=== PATIENT | female | born 1970 | race Hispanic/Latino ===

== ENCOUNTER 2022-02-17 19:14 | Emergency (ER) | payer OTHER, SELFPAY ==
[2022-02-17 19:45] LABS: Bilirubin Neg (Negative); Blood, Urine 250 (Negative); Clarity Slightly Cloudy (Clear); Glucose, Urine (Dipstick) Normal (Negative); Ketone, Urine Negative (Negative); Leukocyte 100 (Negative); Nitrite Negative (Negative); Protein, Urine (Dipstick) 30 mg/dl (Neg-Trace); Specific Gravity, Urine 1.005 (1.002-1.036); Urobilinogen Normal mg/dL (Less than 2)
[2022-02-17 19:58] LABS: Bacteria/HPF None Seen HPF (None Seen); RBC/HPF 21-50 HPF (0-3); Squamous Epithelial 0-3 HPF (0-3); WBC/HPF Greater Than 50 HPF (0-3)
== END 2022-02-17 20:12 | disposition home or self-care (01) ==
LOC: CSHERS 19:14
DX: N30.90 Cystitis, unspecified without hematuria (principal)
CPT/HCPCS: 81003; 81015; 87086; 99284

== ENCOUNTER 2024-05-28 11:28 | Outpatient (CLI) | payer OTHER ==
[2024-05-28 12:59] LABS: Hematocrit 40.6 % (34.9-44.5)
== END 2024-05-28 11:29 | disposition home or self-care (01) ==
LOC: CSHLAB 11:28
PROVIDERS: ATTEND Specialist
DX: Z01.818 Encounter for other preprocedural examination (principal); J34.2 Deviated nasal septum; J34.3 Hypertrophy of nasal turbinates; J35.1 Hypertrophy of tonsils
CPT/HCPCS: 85014; 93005; 93010

== ENCOUNTER 2024-06-04 08:04 | Day surgery (SDC) | payer OTHER ==
[2024-06-04] MEDS ORDERED: AFRIN NASAL MIST 15 ML BOT ONE ×2 (10:16→11:26)
[2024-06-04] MEDS ORDERED: PROPOFOL 20 ML ONE (11:25)
[2024-06-04] MEDS ORDERED: fentaNYL 50 mcg/mL 1 mL Vial ONE ×4 (11:25→13:43)
[2024-06-04] MEDS ORDERED: Mupirocin 2% Ointment 22 GM Tube ONE (11:26)
[2024-06-04] MEDS ORDERED: Lidocaine 1% w/Epinephrine 1:200K 30 ML VIAL ONE (11:26)
[2024-06-04] MEDS ORDERED: Lidocaine 1% PF 5 ML VIAL ONE (11:50)
[2024-06-04] MEDS ORDERED: Ondansetron PF 4 MG/2 ML Vial ONE ×2 (11:50→14:46)
[2024-06-04] MEDS ORDERED: Rocuronium Bromide 10 MG/ML (10ML VIAL) ONE (11:50)
[2024-06-04] MEDS ORDERED: Dexamethasone 4 mg/ml Vial ONE (11:50)
[2024-06-04] MEDS ORDERED: Oxymetazoline HCl 0.05% ( 15 ML ) ONE (12:21)
[2024-06-04] MEDS ORDERED: Ferric Subsulfate 8 ML TOPICAL SOLN ONE (12:21)
[2024-06-04] MEDS ORDERED: SUGAMMADEX SODIUM 200 MG/2 ML VIAL ONE (12:27)
[2024-06-04] MEDS ORDERED: Hydrocodone-Acetamin 15 ML UDCUP ONE (15:20)
== END 2024-06-04 15:40 | disposition home or self-care (01) ==
LOC: CSHSDC 08:04
PROVIDERS: ATTEND Specialist
PROC: 09BM8ZZ Excision of Nasal Septum, Via Natural or Artificial Opening Endoscopic (ICD-10-PCS; principal; 2024-06-04)
PROC: 0CTPXZZ Resection of Tonsils, External Approach (ICD-10-PCS; principal; 2024-06-04)
PROC: 09TL8ZZ Resection of Nasal Turbinate, Via Natural or Artificial Opening Endoscopic (ICD-10-PCS; principal; 2024-06-04)
DX: J34.2 Deviated nasal septum (principal); J34.3 Hypertrophy of nasal turbinates; J35.3 Hypertrophy of tonsils with hypertrophy of adenoids; J35.01 Chronic tonsillitis; R09.81 Nasal congestion; G47.33 Obstructive sleep apnea (adult) (pediatric); Z98.51 Tubal ligation status; Z79.899 Other long term (current) drug therapy
CPT/HCPCS: J1100; J2405; J2704; J3010

== ENCOUNTER 2024-09-10 09:42 | Outpatient (CLI) | payer OTHER | END 2024-09-10 09:43 | disposition home or self-care (01) | LOC: CSHMAMMO 09:42 | PROVIDERS: ATTEND Family Medicine | DX: Z12.31 Encounter for screening mammogram for malignant neoplasm of breast (principal) | CPT/HCPCS: 77063; 77067 ==